=== PATIENT | male | born 1985 | race Caucasian/White ===

== ENCOUNTER 2017-03-02 10:32 | Emergency (ER) | payer OTHER ==
[~2017-03-02] VITALS: Ht 172.7 cm; Wt 79.4 kg
[~2017-03-02 10:32] MED LIST: AUGMENTIN 875875 MG PO; IBUPROFEN 800800 MG PO
[2017-03-02] MEDS ORDERED: MULTIVITAMINS1 EAC7 PO (10:41)
[2017-03-02] MEDS ORDERED: HYDROCODON-ACE1 EAC7 PO (10:54)
[2017-03-02] MEDS ORDERED: VALACYCLOVIR1000 MG PO (10:54)
[2017-03-02 11:13] VITALS: BP 125/84
== END 2017-03-02 11:14 | disposition home or self-care (01) ==
LOC: M.ERS 10:32
DX: J02.9 Acute pharyngitis, unspecified (principal); K12.1 Other forms of stomatitis